=== PATIENT | female | born 2000 | race Caucasian/White ===

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

== ENCOUNTER 2021-01-05 16:37 | Emergency (ER) | payer MEDICAID, SELFPAY ==
[2021-01-05 16:38] VITALS: BP 147/108; PULSE 87; RESP 18; TEMP 35.7; O2SAT 97; BMI 36.0
[2021-01-05 17:02] LABS: Absolute Lymphocyte Count 2.03 X10^3/uL (0.83-4.51); Basophil# 0.05 X10^3/uL; Basophil% 0.7 % (0-1); Eosinophil# 0.38 X10^3/uL; Eosinophils% 5.4 % (0-5); Hemoglobin 12.9 g/dL (12.0-15.0); Lymphocyte # 2.03 X10^3/ul (0.83-4.51); Mean Corp Hgb Conc 33.9 g/dL (32-36); Mean Corpuscular Hgb 30.6 pg (27.0-32.0); Mean Platelet Vol. 10.4 fl (6.2-12.0); Monocyte# 0.53 X10^3/uL; Monocyte% 7.6 % (0-10); NRBC Flagged by Analyzer 0 % (0-5); Neutrophil % 57.2 % (47-70); Platelet Count 254 K/mm3 (150-450); RBC Distribution Width CV 12.3 % (11.6-14.6); Red Blood Count 4.22 M/mm3 (4.2-5.4)
[2021-01-05 17:20] LABS: Internal QC Validated? YES +Cl - CLEAR BKGD; Pregnancy, Serum, hCG Quali. NEGATIVE Negative
[2021-01-05 17:22] LABS: Anion Gap 7 (5-15); BUN 7 mg/dL (7-18); BUN/Creat Ratio 8.7 RATIO (10-20); Calcium,Total 8.8 mg/dL (8.5-10.1); Chloride 107 mmol/L (98-107); EST Glomerular Filtration Rate 97 mL/min (>60); Est Glom Filt Rate - Afr Amer 118 mL/min (>60); Estimated Creatinine Clearance 109.99 ml/min; Glucose 78 mg/dL (74-106); Potassium 3.9 mmol/L (3.5-5.1); Sodium Level 139 mmol/L (136-145)
== END 2021-01-05 18:31 ==
LOC: ED 18:36
PROVIDERS: PCP Nurse Practitioner Adult Health
DX: R10.9 Unspecified abdominal pain (principal)
CPT/HCPCS: 36415; 80048; 84703; 85025; J7030

== ENCOUNTER → 2021-01-16 11:31 | Outpatient (CLI) | payer MEDICAID, SELFPAY ==
[2021-01-16 13:39] LABS: Hemoglobin 13.2 g/dL (12.0-15.0); Mean Corp Hgb Conc 34.7 g/dL (32-36); Mean Corpuscular Hgb 30.6 pg (27.0-32.0); Mean Corpuscular Volume 88.2 fL (81-99); Platelet Count 255 K/mm3 (150-450); RBC Distribution Width CV 12.1 % (11.6-14.6); RBC Distribution Width SD 39.4 fl (35.1-43.9); Red Blood Count 4.31 M/mm3 (4.2-5.4); White Blood Count 7.4 K/mm3 (4.4-11.0)
[2021-01-16 13:53] LABS: hCG Titer Quant., Serum < 1 mIU/mL (1-3)
[2021-01-16 14:00] LABS: LDH 175 U/L (84-246); T4 Free Direct 0.82 ng/dL (0.76-1.46); Thyroid Stim Hormone (TSH) 1.18 uIU/mL (0.358-3.74)
[2021-01-19 18:46] LABS: Carbohydrate Ag 19-9 2261 73 U/mL (0-35)
[2021-01-19 18:47] LABS: Cancer Antigen 125 21.3 U/mL (0.0-38.1); Carcinoembryonic Antigen 2.5 ng/mL (0.0-4.7)
== END ==
PROVIDERS: PCP Nurse Practitioner Adult Health; Visit Provider Obstetrics & Gynecology
DX: R19.00 Intra-abdominal and pelvic swelling, mass and lump, unspecified site (principal)
CPT/HCPCS: 36415; 82378; 83615; 84439; 84443; 84702; 85027; 86301; 86304; 86900; 86901

== ENCOUNTER 2021-01-29 11:02 | Day surgery (SDC) | payer MEDICAID, SELFPAY ==
[2021-01-29 11:30] VITALS: BP 142/81; PULSE 92; RESP 16; TEMP 35.9; O2SAT 97; BMI 34.7
--- NOTE | 2021-01-29 11:55 | SUR.PREOP ---
DR FRITZ CAME AND TALKED WITH PT- SURGERY CANCELED D/T INSURANCE . QUESTIONS ANSWERED
== END 2021-01-29 11:55 ==
LOC: SDC 11:03 → AC 11:18
PROVIDERS: PCP Nurse Practitioner Adult Health; Referring Provider Obstetrics & Gynecology; Visit Provider Obstetrics & Gynecology
DX: Z53.09 Procedure and treatment not carried out because of other contraindication (principal)
CPT/HCPCS: J7120

== ENCOUNTER → 2021-01-29 16:06 | Outpatient (CLI) | payer MEDICAID, SELFPAY ==
[2021-01-29 11:32] LABS: Internal QC Validated? YES +Cl - CLEAR BKGD; Pregnancy, Urine Negative Negative
== END ==
PROVIDERS: Anesthesiology; PCP Nurse Practitioner Adult Health; Visit Provider Urology
DX: Z01.818 Encounter for other preprocedural examination (principal)
CPT/HCPCS: 81025

== ENCOUNTER 2021-02-06 10:16 | Day surgery (SDC) | payer MEDICAID, SELFPAY ==
[2021-02-06] VITALS (7 sets, daily range): BP systolic 97–138; BP diastolic 52–85; PULSE 65–79; RESP 16–18; TEMP 36.2–36.8; O2SAT 97–100; BMI 34.7
[2021-02-06 10:47] LABS: Internal QC Validated? YES +Cl - CLEAR BKGD
[2021-02-06 10:50] LABS: Pregnancy, Urine Negative Negative
[2021-02-06] MEDS: Lactated Ringers 1,000 ML 100 ML IV ×2 (11:02→14:11)
--- NOTE | 2021-02-06 11:23 | PCM.HP.BLA ---
History and Physical Date of Admission: 02/06/21 Surgical History and Physical Date: 02/06/2021 Name: RENA CHRISTINE Age: 20 Date of : 01 Rena Christine, a 20 year old female 0 0 0 0 0, presents for Diagnostic laparotomy, removal of pelvic mass, possible oophorectomy -- Rena is here with pelvic mass for diagnostic laparotomy. All questions answered and consent signed. MEDICATIONS HISTORY: Current medications prescribed by our practice are: 1. tramadol 50 mg tablet, 1 tab every 6 hours for pain 2. Zofran 4 mg tablet, 1 tab every 6 hours as needed for nausea Patient is also takin. atomoxetine 100 mg capsule, One capsule by mouth once daily (Strattera) 2. cetirizine 10 mg tablet, One tablet by mouth once daily 3. sertraline 50 mg tablet, One tablet by mouth once daily ALLERGIES: No Known Allergies Infections - Chicken pox and Pneumonia ( not hospitalized) Illnesses - Anxiety, ADHD Accidents - no injuries of consequence Hospitalizations - see surgery Review of Systems: GENERAL - L side pain SKIN - Denies skin changes EYES - wears eye glasses EARS - Denies difficulty hearing NOSE - Denies nasal congestion or bleeding MOUTH - Denies sore throat or difficulty swallowing NECK - Denies pain or swelling RESPIRATORY - Denies shortness of breath or wheezing CARDIOVASCULAR - Denies palpitations or chest pain GASTROINTESTINAL - Denies nausea, vomiting, diarrhea, constipation GENITOURINARY - Denies dysuria, frequency of urination, incontinence of urine MUSCULOSKELETAL - Denies joint or muscle pain NEUROLOGICAL - Denies localized numbness or weakness PSYCHIATRIC - Denies depression or anxiety ENDOCRINE - Denies heat or cold intolerance, weight loss or gain HEMATO-IMMUNOLOGIC - Denies excessive bleeding with cuts SOCIAL HISTORY: Alcohol Use - denies drinking Smoking - denies smoking Diet - no particular diet Exercise - walking Seat Belt Use - always Employer - Unemployed Illicit Drug Use - denies use of street drugs Sexual Activity - never been sexually active Residence - Lives w/parents FAMILY HISTORY: MENSTRUAL HISTORY: LMP Known?- Approximate-Month KnownAmount/Duration - 1 day, Regularity - missed periods, Frequency - variable days, LMP - 01/17/21, Age Onset Menarche - 15 PAST PREGNANCIES: Total Pregnancies - 0; Full Term Pregnancies - 0; Premature - 0; Abortions, Induced - 0; Abortions, Spontaneous - 0; Ectopics - 0; Multiple Births - 0; Living Children - 0 SURGICAL HISTORY: 1. Tonsillectomy, Adenoidectomy ; - 2. Bilateral Tubes in Ears as a young child ; - PHYSICAL EXAM BP- 124/84 Sitting, Right arm, large cuff Weight- 221.64592 lbs Height- 66.25 inch BMI:[id number] CONSTITUTIONAL - NAD, well nourished, and well developed SKIN - No rash, lesions, or ulcers HEENT - Normocephalic, PERRLA, EOMI NECK - No nodes, no nuchal rigidity and thyroid normal size and texture ABDOMEN - Without hepatosplenomegaly, distention, masses, rebound, or guarding; normal bowel sounds; no hernias and Palpable abdominal mass at umbilicus EXTREMITIES - No edema or calf tenderness NEUROLOGICAL - Cranial nerves II-XII grossly intact PSYCHIATRIC - A and O to time, place, person, mood and affect External Genital Vagina - non-tender without lesions Urethra/Urethral Meatus - non-tender Bladder - non-tender Uterus - Palpable abdominal mass at umbilicus ASSESSMENT/PLAN: 1. Pelvic And Perineal Pain Patient with abdominal and pelvic pain. Seen by PCP and found to have pelvic mass on CT scan. Ultrasound shows 17 to 18 cm pelvic mass appears to be a teratoma. Educated patient on the results including tumor markers and risk for malignancy. Educated on surgical options including need for large incision. Discussed risk benefits alternatives of surgery. Educated on attempt cystectomy possible oophorectomy Patient states understanding wish to proceed 2. Encounter For Other Preprocedural Examination As above patient for diagnostic laparotomy removal of pelvic mass possible cystectomy possible oophorectomy Educated patient on surgery risk benefits alternatives and recovery including burden of large incision Patient with no medical issues. Educated on anesthesia. All questions answered and consent was signed
[2021-02-06] MEDS: Cefazolin 2 GM in 0.9% Normal Saline 100 ML IV (11:55)
--- NOTE | 2021-02-06 12:05 | OV_PTH ---
PATIENT: SELMA POTTER LOC: [facility] [place][id number] AGE/SX: 20/F ROOM: RE02/06/[address]: Dr. Robinson Burgess MD : 2000 BED: DIS: 02/06/2021 SPEC #: [id number] RECD: 02/06/21 12:57 STATUS: DESIRE MARYSE #: [id number] JIL: 02/06/21 12:[address]: Robinson Burgess DEPT: SURGICAL PATHOLOGY RECD BY: Norma Guzman ENTERED: 02/06/21 13:06 SP TYPE: OVARY OTHR DR: WICHO Coleman Tissues: Left ovary Procedures: Surgery Specimen Level V HEADER OPERATION: Diagnostic laparotomy with removal of ovarian mass PRE-OP DIAGNOSIS: Pelvic and perineal pain TISSUE SUBMITTED: Left ovary, pelvic mass MICROSCOPIC DIAGNOSIS Left ovary, pelvic mass, oophorectomy: Mature cystic teratoma (dermoid cyst), 21 cm in greatest dimension. OCTAVIO:jacqueline 02/12/2021 MICROSCOPIC DESCRIPTION Slides are reviewed. GROSS DESCRIPTION Received in fixative is one container labeled with the patient's name and designated left ovary, pelvic mass. The specimen consists of a cystic ovary weighing 1600 gm and measures 21 x 15 x 12 cm. The outer surface is smooth. The fallopian tube is not identified. The cyst contains large amount of clear, cony-colored fluid. A focal solid area is also noted which measures 11 cm in greatest dimension. Section of the solid area reveal it contains multiple hair and sebum-like material. A focal area of bone formation is also noted. Sections will be submitted after fixation. / OCTAVIO:jacqueline 02/06/21 Legal Job Titles sections are submitted in four cassettes. Additional sections from the bony area will be submitted after decalcification. / OCTAVIO:jacqueline 02/09/21 Sections from the bony area are submitted in three more cassettes, 5-7. / OCTAVIO:jacqueline 02/10/21 TC:1 CPT: 29350
--- NOTE | 2021-02-06 13:07 | PCM.DC ---
Discharge Instructions Diet Discharge Diet: No restrictions Activity Discharge Activity: Return to Normal Activity, May Drive, May Shower and - (No tub baths for 2 to 3 weeks) May resume sexual activity in: 4-6 weeks Lifting Restrictions: No lifting over 25 pounds for 2 to 3 weeks Dressing / Incision Call your doctor if your incision/area has: Continuous Slow Oozing and Foul Smelling Discharge Call your doctor if you observe: Fever of 101 or Higher, Shortness of breath and Chest pain Follow Up Care Please Follow Up With: Robinson Burgess MD When: Follow-up 2 weeks postoperatively Test Results: Test results from this visit will be discussed in further detail at your follow-up appointment, if applicable. Discharge Plan Admission Primary Reason for Your Visit: pelvic mass Attending Provider: Robinson Burgess Primary Care Provider: Elodia Sampson Discharge Orders/Prescriptions Prescriptions: New oxycodone 5 mg Tablet 5 mg PO Q6H PRN PRN (Reason: Pain Score 6-10) 5 Days Qty: 20 RF: 0 Continued sertraline 50 mg Tablet 50 mg PO DAILY RF: 0 atomoxetine 100 mg Capsule 100 mg PO DAILY RF: 0 cetirizine 10 mg Capsule 10 mg PO DAILY RF: 0 Referrals / Follow Up: Elodia Sampson, TIRE MAINTENANCE TECHNICIAN-C [Primary Care Provider] - Disposition Disposition (needs filled in before D/C Order can be placed): Home, Self Care
--- NOTE | 2021-02-06 13:08 | OP.PCM_ITS ---
Report of Operation Date of Procedure: 02/06/21 Pre-Operative Diagnosis: Pelvic mass Post-Operative Diagnosis: Left ovarian cyst, pelvic mass Surgery/Procedure Performed:: Diagnostic laparotomy, left oophorectomy removal of pelvic mass Description of Surgical Findings:: Surgeon: Robinson Burgess MD anesthesia: General EBL: 25 cc urine output: 300 cc IV fluids: 1200 cc complications: None specimen: Left ovarian cyst and pelvic mass findings: Left ovary with 15-20 cm mass. Left ovary could not be identified beyond the mass, need to be surgically removed in order to remove pelvic mass. Coloovarian adhesions noted along right side of pelvic mass. left fallopian tube, uterus, right fallopian tube and right ovary within normal limits. No other pathology found Consent: Patient arrived with pelvic mass in need of diagnostic laparotomy and removal of pelvic mass possible oophorectomy. Patient understood the risk of the procedure include but are not limited to visceral or vascular injury, prolonged hospitalization, blood loss and need for transfusion, reoperation. Educated patient on future fertility and risk for early menopause. Patient state understanding wish to proceed. All questions answered and consent was signed. Procedure: Patient was brought back to the OR where general anesthesia found to be adequate. 2 g of Ancef were given for infection prophylaxis. Patient was prepared and draped in a supine position. A Pfannenstiel incision was made at the skin with a scalpel. The incision was carried down to the fascia with a scalpel. The fascia was excised and extended laterally. Inferior aspect of the fascia was grasped and the underlying rectus and pyramidalis muscles were dissected off sharply. In a similar fashion the superior aspect of the fascia was grasped with a clamp and rectus muscle was dissected off sharply. Rectus muscle was dissected at the midline down to the level of the pubic symphysis. Preperitoneal fatty tissue was noted and peritoneum was entered sharply. Peritoneum was extended superiorly and inferiorly with good visualization of bladder. Above findings were noted. [place]-ovarian adhesions were dissected off sharply with Metzenbaum scissors, good hemostasis was noted. Ureter was visualized and palpated beyond the level of the surgical field. Using a LigaSure device the IP ligament was cut and cauterized, good hemostasis was noted. Mesov[place] was cut and cauterized with LigaSure device along with utero- ovarian ligament. Good hemostasis was noted. Pelvic mass sent to pathology. All surgical sites were reinspected and good hemostasis was noted. Abdomen and pelvis were explored for further pathology with no new pathology noted. Peritoneum was closed in a continuous running fashion. Fascia was closed in a continuous running fashion. Skin was closed in a subcuticular fashion. All counts correct x2. Patient tolerated the procedure well and was brought to recovery in a stable condition. film flat inspector: Arcelia English
[2021-02-06] MEDS: Ketorolac 30 MG/ML Syringe IM (13:55)
[2021-02-06] MEDS: oxyCODONE 5 MG Tablet PO (14:32)
== END 2021-02-06 15:45 | disposition home or self-care (01) ==
LOC: SDC 10:17 → AC 10:18
PROVIDERS: Anesthesiology; PCP Nurse Practitioner Adult Health; Referring Provider Obstetrics & Gynecology; Visit Provider Obstetrics & Gynecology
PROC: 0UT90ZZ Resection of Uterus, Open Approach (ICD-10-PCS; CPT 58150; principal; 2021-02-06 11:45)
DX: D27.1 Benign neoplasm of left ovary (principal); R19.00 Intra-abdominal and pelvic swelling, mass and lump, unspecified site; F41.9 Anxiety disorder, unspecified; F90.9 Attention-deficit hyperactivity disorder, unspecified type
CPT/HCPCS: 58661; 81025; 88305; 88307; J7120; J2405

== ENCOUNTER 2021-03-26 15:30 | Emergency (ER) | payer MEDICAID, SELFPAY ==
[2021-03-26 15:31] VITALS: BP 127/89; PULSE 90; RESP 18; TEMP 36.4; O2SAT 95; BMI 35.2
--- NOTE | 2021-03-26 15:40 | RAD_ITS ---
STUDY: X-RAY CHEST REASON FOR EXAM: Female, 20 years old. COUGH, sob TECHNIQUE: Single AP portable view of the chest. COMPARISON: None. FINDINGS: The lungs are clear and expanded. There is no demonstrated pleural abnormality. Normal size heart. Normal mediastinum and kong. Normal visualized pulmonary arteries. Normal visualized aortic arch and descending thoracic aorta. Normal visualized thoracic spine. Normal visualized ribs, clavicles, and shoulders. There is no demonstrated abnormality of the visualized soft tissue structures of the upper abdomen. RAD/Chest 1 View (Portable) IMPRESSION: Normal x-ray examination of the chest. Electronically Signed: Valentino Cormier MD at 15:52 EST , Service support ,
== END 2021-03-26 17:02 ==
LOC: ED 17:18
PROVIDERS: PCP Nurse Practitioner Adult Health
DX: R05.9 Cough, unspecified (principal); R06.02 Shortness of breath
CPT/HCPCS: 71045

== ENCOUNTER 2021-04-28 16:58 | Outpatient (CLI) | payer MEDICAID, SELFPAY ==
[2021-04-28 17:26] LABS: Hematocrit 38.9 % (37-47); Mean Corp Hgb Conc 33.4 g/dL (32-36); Mean Corpuscular Hgb 29.8 pg (27.0-32.0); Mean Corpuscular Volume 89.2 fL (81-99); Platelet Count 266 K/mm3 (150-450); RBC Distribution Width CV 12.1 % (11.6-14.6); RBC Distribution Width SD 39.5 fl (35.1-43.9); Red Blood Count 4.36 M/mm3 (4.2-5.4); White Blood Count 8.1 K/mm3 (4.4-11.0)
[2021-04-28 18:51] LABS: Anion Gap 9 (5-15); BUN 15 mg/dL (7-18); BUN/Creat Ratio 16.8 RATIO (10-20); Calcium,Total 9.3 mg/dL (8.5-10.1); Chloride 103 mmol/L (98-107); Creatinine, Serum 0.89 mg/dL (0.55-1.02); EST Glomerular Filtration Rate 86 mL/min (>60); Est Glom Filt Rate - Afr Amer 104 mL/min (>60); Glucose 81 mg/dL (74-106); Potassium 3.9 mmol/L (3.5-5.1); Prolactin 13.8 ng/mL; Sodium Level 140 mmol/L (136-145); T4 Free Direct 0.86 ng/dL (0.76-1.46); Thyroid Stim Hormone (TSH) 1.73 uIU/mL (0.358-3.74)
== END 2021-04-28 23:59 | disposition short-term general hospital (02) ==
LOC: WOBLAB 17:00
PROVIDERS: PCP Nurse Practitioner Adult Health; Visit Provider Obstetrics & Gynecology
DX: N64.82 Hypoplasia of breast (principal)
CPT/HCPCS: 36415; 80048; 82670; 83001; 83002; 84146; 84439; 84443; 85027

== ENCOUNTER → 2021-11-05 | Outpatient (CLI) | payer MEDICAID, SELFPAY ==
[2021-11-05 17:45] LABS: Thyroid Stim Hormone (TSH) 3.22 uIU/mL (0.358-3.74)
== END | disposition home or self-care (01) ==
PROVIDERS: Visit Provider Nurse Practitioner Adult Health
DX: R63.5 Abnormal weight gain (principal)
CPT/HCPCS: 36415; 84443